=== PATIENT | male | born 1940 | race Caucasian/White ===

== ENCOUNTER 2017-01-23 19:31 | Observation (INO) | payer MEDICARE ==
[~2017-01-23] VITALS: Ht 185.4 cm; Wt 116.3 kg
[2017-01-23] MEDS ORDERED: NS 1,000 ML IV ONE (20:00)
[2017-01-23 20:24] LABS: BASO % 0.4 % (0.0-1.0); EOS # 0.1 K/mm3 (0.0-0.50); LARGE UNSTAINED CELL # 0.1 K/mm3 (0.0-0.4); LARGE UNSTAINED CELL % 1.3 % (0.0-4.0); LYMPH # 1.4 K/mm3 (1.5-4.5); LYMPH % 15.6 % (24.0-44.0); MEAN CORPUSCULAR HEMOGLOBIN 31.3 pg (27.0-33.0); MEAN CORPUSCULAR HGB CONC 34.8 g/dl (32.0-36.5); MEAN CORPUSCULAR VOLUME 89.8 fl (80.0-96.0); MONO # 0.5 K/mm3 (0.0-0.8); MONO % 6.1 % (0.0-5.0); NEUTROPHILS # 6.2 K/mm3 (1.8-7.7); NEUTROPHILS % 75.6 % (36.0-66.0); PLATELET COUNT, AUTOMATED 159 k/mm3 (150-450); RED CELL DISTRIBUTION WIDTH 12.6 % (11.5-14.5); WHITE BLOOD COUNT 8.2 K/mm3 (4.0-10.0)
[2017-01-23] MEDS: MORPHINE 4 MG/ML 1ML SYRINGE IV PRN ×2 (20:40→21:32)
[2017-01-23 20:42] LABS: ANION GAP 9 MEQ/L (8-16); BLOOD UREA NITROGEN 14 MG/DL (7-18); CARBON DIOXIDE LEVEL 25 MEQ/L (21-32); CHLORIDE LEVEL 104 MEQ/L (98-107); CREATININE FOR GFR 0.95 MG/DL (0.70-1.30); GLOMERULAR FILTRATION RATE > 60.0 (>42); GLUCOSE, FASTING 175 MG/DL (83-110); POTASSIUM SERUM 3.8 MEQ/L (3.5-5.1); SODIUM LEVEL 138 MEQ/L (136-145)
[2017-01-23] MEDS ORDERED: GABAPENTIN 300 MG CAP PO SCH (21:00)
[2017-01-23] MEDS ORDERED: PRAVASTATIN 20 MG TAB PO SCH (21:00)
[2017-01-23] MEDS ORDERED: PIPERACILLIN/TAZOBACTAM SOD 3.375 GM in D5W MINI-BAG PLUS 50 ML IV ONE (21:15)
[2017-01-23] MEDS ORDERED: CELE1CAP4 PO (21:38)
[2017-01-23] MEDS ORDERED: AMLO5TAB2 PO (21:38)
[2017-01-23] MEDS ORDERED: PRAV20TA2 PO (21:38)
[2017-01-23] MEDS ORDERED: LISI-538 PO (21:38)
[2017-01-23] MEDS ORDERED: GLIM2TAB PO (21:38)
[2017-01-23] MEDS ORDERED: GABA-282 PO (21:38)
[2017-01-23] MEDS ORDERED: ASPI1TAB15 PO (21:38)
[2017-01-23] MEDS ORDERED: PATIENT COMMENT (21:40)
[2017-01-23] MEDS ORDERED: ACETAMINOPHEN TAB 650MG DOSE (2X325MG) PO PRN (22:00)
[2017-01-23] MEDS ORDERED: ACETAMINOPH W/CODEINE #3 TAB UD PO PRN (22:00)
--- NOTE | 2017-01-23 22:24 | HPEPDOC ---
General Date of Admission 01/23/2017 Attending Physician: Sachin Tracey MD Chief Complaint The patient is a 76-year-old male admitted with a reason for visit of Laceration. Source: Patient Exam Limitations: No limitations History of Present Illness Patient is a 76-year-old male with traumatic injury to his left thumb that required ligation of the digital artery of the left thumb and debridement and repair of laceration. Patient had a tetanus shot within the last year. Patient denies any nausea, vomiting, fevers, chills, chest pain or shortness of breath. Home Medications Scheduled Amlodipine Besylate (Amlodipine Besylate) 5 Mg Tab, 5 MG PO DAILY, (Reported) Aspirin (Aspirin) 81 Mg Tab, 81 MG PO DAILY, (Reported) Celecoxib (Celebrex) 200 Mg Cap, 200 MG PO BID, (Reported) Gabapentin (Gabapentin) 300 Mg Cap, 300 MG PO QHS, (Reported) Glimepiride (Glimepiride) 2 Mg Tab, 2 MG PO DAILY, (Reported) Lisinopril (Lisinopril) 20 Mg Tab, 20 MG PO DAILY, (Reported) Pravastatin Sodium (Pravastatin Sodium) 20 Mg Tab, 20 MG PO QHS, (Reported) Miscellaneous Medications [Patient Comment] , (Reported) PATIENT IS UNSURE OF A HEART MEDICATION THAT HE JUST STARTED. HIS SON WILL BE GOING BACK TO WHERE THEY ARE STAYING AND GOING OVER THE MEDICATIONS. Allergies Coded Allergies: No Known Allergies (Unverified , 01/23/17) Past Medical History Medical History Diabetes mellitus Hypertension Aortic stenosis Surgical History Bilateral hip replacement Family History Significant Family History: No pertinent family hx Social History * Smoker: Denies Alcohol: rarely Drugs: denies Recent Travel/Sick Contacts: Denies: Recent travel, Recent sick contacts Psychosocial History: No pertinent psych hx Review of Symptoms Constitutional: Denies: Chills, Fever, Malaise, Night Sweats, Weakness, Fatigue , Weight Loss, Lethargy, Other Eyes: Denies: Pain, Vision change, Conjunctivae inflammation, Eyelid inflammation, Redness, Other ENT: Denies: Head Aches, Ear Pain, Dysphagia, Sinus Congestion, Post Nasal Drip , Sore Throat, Epistaxis, Other Symptoms Skin: Denies: Rash, Lesions, Jaundice, Bruising, Itching, Dry, Breakdown, Nail Changes, Other Pulmonary: Denies: Dyspnea, Cough, Pleuritic Chest Pain, Other Symptoms Cardiovascular: Denies: Chest Pain, Palpitations, Orthopnea, Paroxysmal Noc. Dyspnea, Edema, Lt Headedness, Other Symptoms Gastrointestinal: Denies: Nausea, Vomiting, Abdominal Pain, Diarrhea, Constipation, Melena, Hematochezia, Other Symptoms Genitourinary: Denies: Dysuria, Frequency, Incontinence, Hematuria, Retention, Other Symptoms Hematologic: Denies: Bruising, Bleeding Excessively, Petecchia, Purpura, Enlarged Lymph Nodes, Other Hematologic Endocrine: Denies: Polydipsia, Polyphagia, Polyuria, Heat Intolerance, Cold Intolerance, Other Endocrine Sx Musculoskeletal: Denies: Neck Pain, Back Pain, Shoulder Pain, Arm Pain, Hand Pain, Leg Pain, Foot Pain, Joint Pain, Muscle Pain, Spasms, Other Symptoms Neurological: Denies: Weakness, Numbness, Incoordination, Change in speech, Confusion, Seizures, Other Symptoms Psych: Denies: Mood Normal, Anxiety, Depression, Memory Issues, Thoughts of Self Harm, Anger, Thoughts of Harming Other, Other Psych Physical Examination General Exam: Positive: Alert, Cooperative, No Acute Distress Eye Exam: Positive: PERRLA ENT Exam: Positive: Atraumatic, Mucous membr. moist/pink, Pharynx Normal Neck Exam: Positive: Supple, +2 carotid pulse wo bruit Chest Exam: Positive: Clear to auscultation Heart Exam: Positive: Rate Normal, Regular Rhythm Telemetry: Positive: No significant arrhythmia Abdomen Exam: Positive: Normal bowel sounds, Soft Extremity Exam: Negative: Clubbing, Cyanosis, Edema, Normal pulses, Tenderness , Swelling, Other Skin Exam: Positive: Nl turgor and temperature Neuro Exam: Positive: Normal Gait, Normal Speech, Normal Tone, Sensation Intact Psych Exam: Positive: Mental status NL, Mood NL Vital Signs Vital Signs Date Time Temp Pulse Resp B/P (MAP) Pulse Ox O2 Delivery O2 Flow Rate FiO2 01/23/17 21:32 18 98 Room Air 01/23/17 20:02 98 148/93 01/23/17 19:42 99.7 Laboratory Data Labs 24H Laboratory Tests 2 01/23/17 20:07: White Blood Count 8.2, Red Blood Count 4.61, Hemoglobin 14.4, Hematocrit 41.4L, Mean Corpuscular Volume 89.8, Mean Corpuscular Hemoglobin 31.3, Mean Corpuscular Hemoglobin Concent 34.8, Red Cell Distribution Width 12.6, Platelet Count 159, Neutrophils (%) (Auto) 75.6H, Lymphocytes (%) (Auto) 15.6L, Monocytes (%) (Auto) 6.1H, Eosinophils (%) (Auto) 1.0, Basophils (%) (Auto) 0.4 , Neutrophils # (Auto) 6.2, Lymphocytes # (Auto) 1.4L, Monocytes # (Auto) 0.5, Eosinophils # (Auto) 0.1, Basophils # (Auto) 0.0, Large Unclassified Cells % 1.3 , Large Unclassified Cells # 0.1, Anion Gap 9, Glomerular Filtration Rate > 60.0 , Blood Urea Nitrogen 14, Creatinine 0.95, Sodium Level 138, Potassium Level 3.8 , Chloride Level 104, Carbon Dioxide Level 25, Calcium Level 9.0 CBC/BMP Laboratory Tests 01/23/17 20:07 Red Blood Count 4.61, Mean Corpuscular Volume 89.8, Mean Corpuscular Hemoglobin 31.3, Mean Corpuscular Hemoglobin Concent 34.8, Red Cell Distribution Width 12.6 , Neutrophils (%) (Auto) 75.6 H, Lymphocytes (%) (Auto) 15.6 L, Monocytes (%) ( Auto) 6.1 H, Eosinophils (%) (Auto) 1.0, Basophils (%) (Auto) 0.4, Neutrophils # (Auto) 6.2, Lymphocytes # (Auto) 1.4 L, Monocytes # (Auto) 0.5, Eosinophils # (Auto) 0.1, Basophils # (Auto) 0.0, Calcium Level 9.0 Plan / VTE VTE Prophylaxis Ordered?: Yes VTE Exclusion Mechanical Proph: Low Risk for VTE Plan Plan Patient is a 76-year-old male with a left thumb laceration with repair of the laceration. Patient is also has history of diabetes. Patient will be admitted overnight for observation and dressing change in the morning as well as IV antibiotic therapy. Disposition Possible discharge in the a.m. after undergoing reevaluation of the left thumb lacerations and dressing change. Sachin Tracey MD Jan 23, 2017 22:24
[2017-01-23 23:05] VITALS: BP 133/81
[2017-01-23] MEDS: CelecoXIB (CeleBREX) 100 MG CAP PO SCH (23:31)
[2017-01-24] MEDS ORDERED: PRAV40TA2 PO (00:07)
[2017-01-24] MEDS ORDERED: PRAVASTATIN 20 MG TAB PO ONE (02:15)
[2017-01-24] MEDS: MORPHINE 10 MG/ML 1ML VIAL IV PRN ×2 (02:35→06:03)
[2017-01-24] MEDS: PIPERACILLIN/TAZOBACTAM SOD 3.375 GM in D5W MINI-BAG PLUS 50 ML IV SCH ×2 (02:46→08:00)
[2017-01-24 06:00] VITALS: BP 129/74
[2017-01-24] MEDS ORDERED: GLIMEPIRIDE 2 MG TAB PO SCH (07:30)
[2017-01-24 07:59] VITALS: BP 139/93
[2017-01-24] MEDS: CelecoXIB (CeleBREX) 100 MG CAP PO SCH (07:59)
[2017-01-24] MEDS ORDERED: ACET30TAB PO (08:45)
[2017-01-24] MEDS ORDERED: AUGM500T34 PO (08:45)
[2017-01-24] MEDS ORDERED: LISINOPRIL 20 MG TAB PO SCH (09:00)
[2017-01-24] MEDS ORDERED: amLODIPine 5 MG TAB PO SCH (09:00)
[2017-01-24] MEDS ORDERED: ASPIRIN 81 MG ENTERIC TAB PO SCH (09:00)
--- NOTE | 2017-01-24 09:09 | DS.PDOC ---
Discharge Summary General Date of Admission Jan 23, 2017 at 21:59 Date of Discharge 01/24/2017 Attending Physician: Sachin Tracey MD Discharge Summary PROCEDURES PERFORMED DURING STAY: Left thumb traumatic laceration repair with ligation of the lateral digital artery of the thumb. ADMITTING DIAGNOSES: 1. Traumatic injury to the left thumb requiring repair and ligation of the left lateral digital artery of the thumb. DISCHARGE DIAGNOSES: 1. Traumatic injury to the left thumb requiring repair and ligation of the left lateral digital artery of the thumb. COMPLICATIONS/CHIEF COMPLAINT: Laceration Of Artery and traumatic laceration of multiple areas of the left thumb. HISTORY OF PRESENT ILLNESS: Patient is a 76-year-old male who was loading a boat onto a trailer when the boat caught his thumb between the front of the boat and the trailer resulting in laceration of the left thumb and left lateral digital artery of the left thumb. Patient came to the emergency room and underwent ligation of the low digital artery and repair of the laceration. Patient was admitted overnight for antibiotic therapy and pain control. HOSPITAL COURSE: Patient was admitted after repair of his left thumb laceration and did well overnight. She underwent dressing changes morning which showed good perfusion of the areas of laceration with no further bleeding. Patient is stable for discharge to home. DISCHARGE MEDICATIONS: Please see below. ALLERGIES: Please see below. PHYSICAL EXAMINATION ON DISCHARGE: VITAL SIGNS: Please see below. GENERAL: Lying in bed comfortably HEENT: Normal NECK: Supple with no carotid bruits CARDIOVASCULAR EXAMINATION: Regular rate and rhythm RESPIRATORY EXAMINATION: Clear to auscultation bilaterally ABDOMINAL EXAMINATION: Soft nontender nondistended EXTREMITIES: Well perfused. Left thumb laceration repairs are healing well with no further bleeding. Left thumb sensory and motor is intact. There is good perfusion of the left hand and thumb. SKIN: Warm well perfused NEUROLOGICAL EXAMINATION: Awake alert oriented 3 with no focal deficits PSYCHIATRIC EXAMINATION: Normal LABORATORY DATA: Please see below. IMAGING: None PROGNOSIS: Good ACTIVITY: [As tolerated]. DIET: Resume previous diet. DISCHARGE PLAN: Patient is being discharged and will return home to [facility]. Patient was instructed to follow up with his primary care physician immediately upon return for continued management and evaluation of his left thumb wounds. Patient had significant avulsion injury and I discussed with the patient in detail that the skin may not heal and he may require further surgical intervention and/or wound care. Patient was discharged with codeine for pain and Augmentin for by mouth antibiotic therapy. DISPOSITION: Home with instructions to follow up with his primary care physician as soon as possible. Patient was instructed to go to the emergency room should there be any problems with his left hand or thumb. DISCHARGE INSTRUCTIONS: 1. Patient will be discharged with instructions to change the dressings for his left thumb traumatic injury repair. Patient will apply Vaseline gauze to the wounds covered by dry dressing and a kerlix and this is to be changed daily. 2. Patient is to follow up with his primary care physician immediately upon arrival to home and should there be any changes or issues with his thumb or hand he is to go to the emergency room immediately. 3. Patient will be on Augmentin for 10 days. DISCHARGE CONDITION: [Stable]. TIME SPENT ON DISCHARGE: Greater than 45 minutes. Vital Signs/I&Os Vital Signs Date Time Temp Pulse Resp B/P (MAP) Pulse Ox O2 Delivery O2 Flow Rate FiO2 01/24/17 07:59 77 139/93 01/24/17 06:13 18 Room Air 01/24/17 06:00 98.0 97 I&O- Last 24 Hours up to 6 AM 01/24/17 05:59 Intake Total 1460 ml Output Total 350 ml Balance 1110 ml Laboratory Data Labs 24H Laboratory Tests 2 01/23/17 20:07: White Blood Count 8.2, Red Blood Count 4.61, Hemoglobin 14.4, Hematocrit 41.4L, Mean Corpuscular Volume 89.8, Mean Corpuscular Hemoglobin 31.3, Mean Corpuscular Hemoglobin Concent 34.8, Red Cell Distribution Width 12.6, Platelet Count 159, Neutrophils (%) (Auto) 75.6H, Lymphocytes (%) (Auto) 15.6L, Monocytes (%) (Auto) 6.1H, Eosinophils (%) (Auto) 1.0, Basophils (%) (Auto) 0.4 , Neutrophils # (Auto) 6.2, Lymphocytes # (Auto) 1.4L, Monocytes # (Auto) 0.5, Eosinophils # (Auto) 0.1, Basophils # (Auto) 0.0, Large Unclassified Cells % 1.3 , Large Unclassified Cells # 0.1, Anion Gap 9, Glomerular Filtration Rate > 60.0 , Blood Urea Nitrogen 14, Creatinine 0.95, Sodium Level 138, Potassium Level 3.8 , Chloride Level 104, Carbon Dioxide Level 25, Calcium Level 9.0 CBC/BMP Laboratory Tests 01/23/17 20:07 Red Blood Count 4.61, Mean Corpuscular Volume 89.8, Mean Corpuscular Hemoglobin 31.3, Mean Corpuscular Hemoglobin Concent 34.8, Red Cell Distribution Width 12.6 , Neutrophils (%) (Auto) 75.6 H, Lymphocytes (%) (Auto) 15.6 L, Monocytes (%) ( Auto) 6.1 H, Eosinophils (%) (Auto) 1.0, Basophils (%) (Auto) 0.4, Neutrophils # (Auto) 6.2, Lymphocytes # (Auto) 1.4 L, Monocytes # (Auto) 0.5, Eosinophils # (Auto) 0.1, Basophils # (Auto) 0.0, Calcium Level 9.0 Discharge Medications Scheduled Amlodipine Besylate (Amlodipine Besylate) 5 Mg Tab, 5 MG PO DAILY, (Reported) Amoxicillin/Clavulanate Potas (Augmentin 500-125 mg) 1 Tab Tab, 500 MG PO BID Aspirin (Aspirin) 81 Mg Tab, 81 MG PO DAILY, (Reported) Celecoxib (Celebrex) 200 Mg Cap, 200 MG PO BID, (Reported) Gabapentin (Gabapentin) 300 Mg Cap, 300 MG PO QHS, (Reported) Glimepiride (Glimepiride) 2 Mg Tab, 2 MG PO DAILY, (Reported) Lisinopril (Lisinopril) 20 Mg Tab, 20 MG PO DAILY, (Reported) Pravastatin Sod (Pravastatin Sodium) 40 Mg Tab, 40 MG PO QHS, (Reported) Scheduled PRN Acetaminophen/Codeine (Tylenol/Codeine #3) Tab, 1 EA PO Q4HP PRN for MODERATE PAIN (PS 5-7) Allergies Coded Allergies: No Known Allergies (Unverified , 01/23/17) Sachin Tracey MD Jan 24, 2017 09:09
[2017-01-24] MEDS ORDERED: PRAVASTATIN 20 MG TAB PO SCH (21:00)
--- NOTE | 2017-03-05 12:21 | RO ---
DATE OF PROCEDURE: 01/23/2017 PREOPERATIVE DIAGNOSIS: Repair left thumb and hand traumatic lacerations with ligation of the lateral digital artery of the left thumb. POSTOPERATIVE DIAGNOSIS: ATTENDING SURGEON: Dr. Naomy Tracey MANAGER RESOURCE: None. ANESTHESIA: Local. ESTIMATED BLOOD LOSS: Minimal. IV FLUID: None. COMPLICATIONS: None. DRAINS: None. SPECIMENS: None. IMPLANTS: None. INDICATION: The patient is a 76-year-old male who was loading his boat onto his trailer when he caught his left hand between the boat and the trailer resulting in laceration of the lateral portion of the thumb as well as the dorsum and palmar surface of the left hand. The patient presented to the emergency room with pulsatile bleeding from the laceration overlying the lateral portion of the left thumb and an emergent consult was placed. I evaluated the patient and prepped and draped and then performed ligation of the bleeding lateral digital artery of the left thumb and closure of the lacerations. Risks, benefits and alternative treatment options were discussed with the patient prior to the procedure. DESCRIPTION OF PROCEDURE: The patient was in the emergency room and prepped and draped in a standard surgical fashion. The bleeding lateral digital artery of the thumb was then ligated using a #2-0 Prolene suture. The wound was then copiously irrigated and the multiple lacerations were approximated using #3-0 nylon suture in vertical mattress fashion loosely approximating the wound due to the traumatic injury. Due to the patient's pain and injury, he was admitted for observation overnight. Dressings were then applied. All instrument, sponge and needle counts were correct at the end of the case. There were no complications. Dr. Tracey was present for and directed the entire case. The patient was admitted to the hospital for observation overnight and subsequently discharged the next day in stable condition.
== END 2017-01-24 12:23 | disposition home or self-care (01) ==
LOC: M ED 19:31 → EDBD 19:31 → M ED INP 21:59 → M MSPAV 23:07
PROVIDERS: ADMIT Surgery Vascular Surgery; ATTEND Surgery Vascular Surgery
DX: S65.412A Laceration of blood vessel of left thumb, initial encounter (principal); E11.9 Type 2 diabetes mellitus without complications; W23.1XXA Caught, crushed, jammed, or pinched between stationary objects, initial encounter; Y99.9 Unspecified external cause status; Y92.89 Other specified places as the place of occurrence of the external cause; S61.002A Unspecified open wound of left thumb without damage to nail, initial encounter; Y93.9 Activity, unspecified
CPT/HCPCS: 35207; 80048; 85025; 86850; 86900; 86901; 99285; G0378; J2543